=== PATIENT | male | born 1955 | race Caucasian/White ===

== ENCOUNTER 2017-05-23 17:59 | Observation (INO) | payer OTHER ==
[2017-05-23 18:43] LABS: % IMMATURE GRANULYOCYTES 0.3 % (0.0-1.1); ABSOLUTE IMMATURE GRANULOCYTES 0.03 10^3/uL (0.00-0.10); ADD DIFF? NO; ADD MORPH? NO; ADD SCAN? NO; ATYPICAL LYMPHOCYTE FLAG 0 (0-99); FRAGMENT RBC FLAG 0 (0-99); HEMATOCRIT 49.4 % (40.0-51.0); HEMOGLOBIN 17.5 g/dL (13.7-17.5); LEFT SHIFT FLG 0 (0-99); LIPEMIA HEMOLYSIS FLAG 90 (0-99); MEAN CELL HEMOGLOBIN 31.1 pg (27.9-34.1); MEAN CELL HEMOGLOBIN CONCENTR. 35.4 g/dL (32.4-36.7); MEAN CELL VOLUME 87.7 fL (81.5-99.8); MEAN PLATELET VOLUME 10.1 fL (8.7-11.7); PLATELET CLUMPS FLAG 0 (0-99); PLATELET COUNT 248 10^3/uL (150-400); RED BLOOD CELL COUNT 5.63 10^6/uL (4.40-6.38); RED CELL DISTRIBUTION WIDTH 13.2 % (11.5-15.2)
[2017-05-23 18:50] LABS: ANION GAP 12 mEq/L (8-16); CALCIUM 9.8 mg/dL (8.5-10.4); CARBON DIOXIDE 25 mEq/l (22-31); CHLORIDE 101 mEq/L (97-110); CREATININE 1.1 mg/dL (0.7-1.3); GLOMERULAR FILTRATION RATE > 60; GLUCOSE 94 mg/dL (70-100); POTASSIUM 3.7 mEq/L (3.5-5.2); SODIUM 138 mEq/L (134-144)
[2017-05-23 19:01] LABS: TROPONIN I < 0.012 ng/mL (0.000-0.034)
[2017-05-23] MEDS ORDERED: IOPAMIDOL (ISOVUE 370) 100 ML BTL IV ONE (19:25)
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
[2017-05-23 19:36] LABS: INR 1.01 (0.83-1.16); PROTIME(PATIENT) 13.2 SEC (12.0-15.0)
[2017-05-23 19:37] LABS: APTT 28.4 SEC (23.0-38.0)
[2017-05-23] MEDS ORDERED: ONDANSETRON 4 MG/2 ML VIAL IVP PRN (20:59)
[2017-05-23] MEDS ORDERED: ACETAMINOPHEN 325 MG TAB PO PRN (20:59)
[2017-05-23] MEDS ORDERED: ONDANSETRON DISINTEGRATING 4 MG TAB PO PRN (20:59)
--- NOTE | 2017-05-23 21:08 | CPEKG ---
Heart Rate: 60 RR Interval: 1000 P-R Interval: 192 QRSD Interval: 106 QT Interval: 412 QTC Interval: 412 P [place]: 3 QRS [place]: -31 T Wave [place]: 62 EKG Severity - BORDERLINE ECG - EKG Impression: SINUS RHYTHM EKG Impression: BORDERLINE IVCD WITH LAD Electronically Signed By: Fei Green 23-May-2017 23:18:25
[2017-05-23] MEDS ORDERED: NITROGLYCERIN 0.4 MG BTL SL PRN (21:37)
[2017-05-23 22:34] LABS: HEMOGLOBIN A1C 5.9 % (4.0-6.0)
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
[2017-05-24 04:40] LABS: CHOLESTEROL 157 mg/dL (140-220); CHOLESTEROL/HDL RATIO 3.93 RATIO (1.00-4.97); HIGH DENSITY LIPOPROTEIN 40 mg/dL (40-65); LDL/HDL RATIO 1.95 RATIO (1.00-3.64); LOW DENSITY LIPOPROTEIN 78 mg/dL (80-100); NON-HIGH DENSITY LIPOPROTEIN 117 mg/dL (90-129); TRIGLYCERIDE 196 mg/dL (40-150); VERY LOW DENSITY LIPOPROTEINS 39 mg/dL (8-25)
[2017-05-24] MEDS: ENOXAPARIN 40 MG/0.4 ML SYR SC SCH (08:55)
[2017-05-24] MEDS ORDERED: REGADENOSON 0.4 MG/5 ML SYR IVP ONE (09:19)
--- NOTE | 2017-05-24 10:18 | PDCARST ---
CAR Stress Test Results Type of Stress Test: Nuc TM stress test Indication: chest pain Description of Procedure: After informed consent was obtained, pt was exercised according to Davidson Protocol. Monitoring was performed with standard stress cable stretcher and tester electrode placement. Vital signs were monitored according to protocol throughout the procedure. STRESS EKG AND HEMODYNAMIC DATA. Exercise time: 9: 43 min. This is equivalent to: 10.6 METS. Resting heart rate: 69 bpm. Resting blood pressure: 132/84 mmHg. Resting O2 saturation: 93 %. Peak heart rate: 145 bpm. This is 92 % of age predicted maximum heart rate response. Peak blood pressure: 168/78 mmHg. Exercise O2: 91 %. Arrhythmias : None. Reason for termination: The test was stopped due to maximal effort. Symptoms: The patient experienced no typical symptoms of angina during stress or recovery. STRESS TEST ANALYSIS. Baseline ECG: SR. Stress ECG: Sinus tach with 1 mm horizontal STD and AVR elevation. exercise induced ischemic ECG changes: Yes. Rhythm: No arrhythmias noted during exercise and recovery. Blood pressure: normal blood pressure response to exercise. Exercise tolerance : The patient has normal exercise tolerance adjusted for age and gender. Symptoms: No exercise induced symptoms. Impression: The [place] Treadmill Score is 9-5(1)= +4. This is an intermediate risk study due to ECG changes with 1 mm STD horizontally and MIKEY AVR. Conclusion: Await nuclear images.
[2017-05-24] MEDS ORDERED: CETIRIZINE 10 MG TAB PO PRN (12:18)
--- NOTE | 2017-05-24 20:02 | HOSPPROG ---
Hospitalist Progress Note Assessment/Plan: 61 yo M with HTN, HLD presenting with chest pain # chest pain: with risk factors of HTN, HLD but initial w/u including ecg so far non diagnostic. Stress test performed and will need to undergo rest portion in am. Patient currently chest pain free. CTA was negative for PE or dissection # HTN: controlled on home regimen of amlodipine, hctz, valsartan # HLD: LDL of 78, currently on atorvastatin 10, will possibly need to increase depending on stress results # dispo: observation, will likely be ready to dc in am if rest portion of stress negative Paitent new to my care. Old records reviewed and summarized as above. Subjective: no significant overnight events, patient not currently having any chaest pain Objective: Vital Signs Temp Pulse Resp BP Pulse Ox 36.5 C 57 L 18 144/83 H 94 05/24/17 19:45 05/24/17 19:45 05/24/17 19:45 05/24/17 19:45 05/24/17 19:45 05/23/17 05/24/17 05/25/17 05:59 05:59 05:59 Intake Total 200 150 Balance 200 150 PT 13.2 SEC (12.0-15.0) 05/23/17 18:20 INR 1.01 (0.83-1.16) 05/23/17 18:20 awake alert nad anicteric op clear rrr no mrg cta b soft nt nd no cce warm dry well perfused oriented appropriate ICD10 Worksheet Patient Problems: Problems Problem Status Onset Chest pain Acute
[2017-05-24] MEDS: ATORVASTATIN CALCIUM 10 MG TAB PO SCH (20:58)
[2017-05-24] MEDS ORDERED: NON-FORMULARY NEW DRUG (Simvastatin [Zocor] 20 MG) PO SCH (21:00)
[2017-05-25 08:22] VITALS: PULSE 55; RESP 14
--- NOTE | 2017-05-25 08:27 | HOSPPROG ---
Hospitalist Progress Note Assessment/Plan: #Chest pain: nuclear stress with abnormal inferior wall. D/w cards. ASA, statin. Rest images showed fixed inferior defect, likely attenuation. I reviewed case with Dr. Ivory who recs Heart Scan at [facility] and then FU with them in clinic in 1 week -cont ASA, statin #HTN: HCTZ #HLD: statin #DC today. FU cards Subjective: no CP or SOB Objective: Vital Signs Temp Pulse Resp BP Pulse Ox 36.7 C 55 L 14 131/75 H 91 L 05/25/17 08:00 05/25/17 08:00 05/25/17 08:00 05/25/17 08:00 05/25/17 08:00 05/24/17 05/25/17 05/26/17 05:59 05:59 05:59 Intake Total 200 550 Balance 200 550 PT 13.2 SEC (12.0-15.0) 05/23/17 18:20 INR 1.01 (0.83-1.16) 05/23/17 18:20 - Physical Exam Constitutional: no apparent distress Eyes: PERRL Ears, Nose, Mouth, Throat: moist mucous membranes, hearing normal, ears appear normal Cardiovascular: regular rate and rhythym, no murmur, rub, or gallop, No edema Respiratory: no respiratory distress, no rales or rhonchi, No inspiratory crackles Gastrointestinal: normoactive bowel sounds, soft, non-tender abdomen Genitourinary: no bladder fullness Skin: warm Musculoskeletal: full muscle strength Neurologic: AAOx3, CN II-XII Intact Psychiatric: interacting appropriately ICD10 Worksheet Patient Problems: Problems Problem Status Onset Chest pain Acute
[2017-05-25] MEDS ORDERED: VALSARTAN PO SCH (09:00)
[2017-05-25] MEDS ORDERED: amLODIPine BESYLATE 5 MG TAB PO SCH (09:00)
[2017-05-25] MEDS ORDERED: ASPIRIN 81 MG CHEWABLE TAB PO SCH (09:00)
[2017-05-25] MEDS ORDERED: AMLODIPINE PO SCH (09:00)
[2017-05-25] MEDS ORDERED: VALSARTAN 160 MG TAB PO SCH (09:00)
[2017-05-25] MEDS ORDERED: HYDROCHLOROTHIAZIDE 25 MG TAB PO SCH (09:00)
[2017-05-25] MEDS: ENOXAPARIN 40 MG/0.4 ML SYR SC SCH ×2 (10:43→13:31)
[2017-05-25 11:55] VITALS: BP 135/81; TEMP 98.6; O2SAT 90
[2017-05-25] MEDS: ATORVASTATIN CALCIUM 10 MG TAB PO SCH (14:26)
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
--- NOTE | 2017-05-25 17:04 | ASDISCHSUM ---
Discharge Information Plan Status:Home with No Needs Medically Cleared to Leave:05/25/2017 Discharge Date:05/25/2017 02:31 PM CM D/C Disposition:Home, Routine, Self-Care ADT D/C Disposition:Home, Routine, Self-Care Projected Discharge Date:05/25/2017 12:00 AM Transportation at D/C:Family Discharge Delay Reason: Follow-Up Date:05/25/2017 12:00 AM Discharge Slot: Final Diagnosis:Chest Pain Placement Information Patient Contact Information Contact Name:WANDER Relationship: Address:[address] [place] [address] Work Phone: City:[facility] Phone: [facility]/Zip Code:[place] [address] Email: Financial Information Financial Class:[employer] Primary Plan Desc:ANASTACIA Skye O [facility] Primary Plan Number:[id number] Secondary Plan Desc: Secondary Plan Number: Assessment Information [facility] CM Progress Note CM Note CM Note Notes: 61 year old male admitted for chest pain, SOB. Has a hx of HLD, HTN. No CP since hospitalization, had a stress test. Patient discharged and to follow up with a cardiac scan as an out-pt. No other needs at this time. Date Signed: 05/25/2017 05:03 PM Electronically Signed By:Christiana Han LCSW Intervention Information Intervention Type:*Incorrect Registration Date of Service:05/23/2017 07:27 AM Patient Type:Inpatient Staff Member:XIAO Pop Susan Hours: Discipline: Severity: Comment:
== END 2017-05-25 14:31 | disposition home or self-care (01) ==
LOC: INTOOBSV 20:50 → F2W 21:38
PROVIDERS: ADMIT Internal Medicine; ATTEND Internal Medicine
DX: R07.9 Chest pain, unspecified (principal); I10 Essential (primary) hypertension; E78.5 Hyperlipidemia, unspecified; Z82.49 Family history of ischemic heart disease and other diseases of the circulatory system
CPT/HCPCS: 71010; 71275; 78452; 93005; 93017; 99285; A9500; G0378; J1650; J2785; Q9967

== ENCOUNTER → 2018-08-31 | Outpatient (CLI) | payer OTHER ==
[~2018-08-31] MED LIST: GADOBUTROL 10 ML VIAL IVP ONE
== END ==
LOC: FIMAGING 07:52
PROVIDERS: ATTEND Family Medicine
DX: K76.89 Other specified diseases of liver (principal); M51.36 Other intervertebral disc degeneration, lumbar region; M51.37 Other intervertebral disc degeneration, lumbosacral region
CPT/HCPCS: A9585